=== PATIENT | female | born 1980 | race Two or more races ===

== ENCOUNTER 2025-08-23 19:10 | Emergency (ER) | payer MEDICAID, SELFPAY ==
--- NOTE | 2025-08-23 19:12 | EDNOTE_ITS ---
ED General RME/HPI General Chief complaint: Abdominal Pain Stated complaint: ABD PAIN Time Seen by Provider: 08/23/25 19:11 Arrival date/time: 08/23/25 19:10 CC: Left lower quadrant abdominal pain HPI onset this morning at 4 AM patient states she took ibuprofen at the time with significant relief. The patient s tates she took ibuprofen a half an hour prior to arrival by EMS and has had no relief. Patient denies nausea vomiting diarrhea. Patient states I think it is my hernia . Patient is awake alert oriented EMS reports stable vital signs. Related Data Home Medications ?Medication ?Instructions ?Recorded ?Confirmed aspirin 81 mg tablet,delayed 81 mg PO QDAY 03/25/21 release (Fernando Low Dose Aspirin) Held on 08/29/21. Instructions: Resume on 08/31/21. prenat.vits,moni,ick-ukiz-pzrmt 1 tab PO QDAY 03/25/21 05/03/21 Previous Rx's ?Medication ?Instructions ?Recorded docusate sodium 100 mg capsule 100 mg PO BID #40 caps 08/29/21 (DOK) hydrocodone 5 mg-acetaminophen 325 1 tab PO Q6H PRN pa in (scale score 08/29/21 mg tablet 7-10) #20 tabs ibuprofen 600 mg tablet 600 mg PO Q8H PRN pain (scal e 08/29/21 score 4-6) #15 tabs hydrocodone 5 mg-acetaminophen 325 1 tab PO Q8H PRN pa in #20 tabs 08/24/25 mg tablet promethazine 25 mg tablet 25 mg PO TID PRN nausea and 08/24/25 vomiting #14 tabs Allergies Allergy/AdvReac Type Severity Reaction Status Date / Time No Known Allergies Allergy Unverified 08/28/21 11:52 Review of Systems Review of Systems Narrative Review of Systems: GEN: No fever, no chills, no weight loss EYES: No discharge, no visual changes, no pain HEENT: No ear pain, no congestion, no sore throat PULM: No shortness of breath, no cough, no congestion CV: No chest pain, no dyspnea on exertion, no palpitations GI: No nausea, no vomiting, no diarrhea, + pain, no constipation : No frequency, no urgency, no dysuria MUSC/SKEL: No joint pain, no back pain SKIN: No rash PSYCH: No hallucinations, no depression HEME/LYMPH: No easy bleeding or bruising tendencies NEURO: No weakness, no headache Past Medical History Past Medical History NEUROLOGIC: Negative Neurological Disorders or Seizures CARDIAC: Negative Cardiac Disorders or Congestive Heart Failure RESPIRATORY: Negative Chronic Obstructive Pulmonary Disease (COPD) GASTROINTESTINAL: Negative Gastrointestinal Disorders GENITOURINARY: Positive Genitourinary Disorders (kidney stones); Negative Renal Disease REPRODUCTIVE: Positive Previous Pregnancies; Negative Pelvic Inflammatory Disease MUSCULOSKELETAL: Negative Musculoskeletal Disorders ENDOCRINE: Negative Endocrine Disorders, Diabetes Mellitus Type 1 or Diabetes Mellitus Type 2 HEMATOLOGIC: Negative Blood Disorders or Anemia PSYCHO/SOCIAL: Positive Anxiety OTHER HISTORY: Positive Hospitalization; Negative Autoimmune Disease, Falls, Blood Transfusions, Blood Transfusion Reaction, Anesthesia Reactions or Cancer Family History FAMILY HISTORY: Negative Family Psychiatric Problems, Family Respiratory Disorders, Family Cardiac Disorders, Family Gastrointestinal Problems, Family Cancer, Family Surgery or Family Anesthesia Reaction Surgical History SURGICAL: Negative Section Social History SMOKING STATUS: Never smoker SUBSTANCE USE: does not use ED Exam Narrative Physical exam: [General: In mild discomfort but not in any acute distress Head normocephalic HEENT: Eyes pupils are PERRLA EOMs are intact mouth pink dry membranes uvula is midline swallow symmetrical phonation is normal. Within acceptable limits Neck is supple nontender Chest equal chest rise nontender to palpation Respiratory: Clear to auscultation no wheezes crackles or rubs CV: Rate rhythm is regular no murmurs rubs or clicks Abdomen is distended secondary to body habitus soft, unable to reproduce the pain with deep palpation in the left lower quadrant as well as the pannus. No pain in the right upper quadrant or upper quadrants. Back: No CVA tenderness no spinous process tenderness from cervical spine thoracic and lumbar spine Skin: Intact no petechiae rash induration ulceration or crepitus Extremities: Moving all extremity against resistance cap refill less than 2 seconds neurosensory intact Neuro: Awake alert oriented x3 Glascow coma 15 no focal deficits] Course Quality Measures none Orders Category Date Time Status Saline [Insert IV] NOW Care 08/23/25 21:[address] abdomen pelvis wo con Stat Exams 08/23/25 19:14 Completed CBC Stat Lab 08/23/25 19:21 Completed CMP [Comprehensive Metabolic Panel] Stat Lab 08/23/25 19:21 Completed HCG,Qualitative Serum Stat Lab 08/23/25 19:21 Completed Lipase Stat Lab 08/23/25 19:21 Completed Urinalysis Stat Lab 08/23/25 20:55 Completed Ketorolac Inj [Toradol Inj] Med 08/23/25 21:24 Discontinued 15 mg IVP X1 ONE Sodium Chloride 0.9% 1000 ml [Ns] 1,000 ml Med 08/23/25 22:30 Discontinued IV 999 mls/hr Tamsulosin HCl [Flomax] Med 08/24/25 00:43 Discontinued 0.4 mg PO X1 ONE cefTRIAXone/D5w 1gm IV premix [Rocephin/D5w 1gm IV Med 08/23/25 21:24 Discontinued premix] 1 gm in 50 ml IV X1 Vital Signs Vital signs: Vital Signs Temperature 98.4 F 08/23/25 19:13 Pulse Rate 87 08/23/25 19:13 Respiratory Rate 16 08/23/25 19:13 Blood Pressure 147/94 H 08/23/25 19:13 Pulse Oximetry (%) 100 08/23/25 19:13 Oxygen Delivery Method Room Air 08/23/25 19:13 Discharge Plan Plan Patient Disposition: HOME (Self Care) Discharge Disposition comment: Stable Prescriptions/Referrals Prescriptions/Med Rec: New hydrocodone-acetaminophen 5-325 mg tablet 1 tab PO Q8H MDD 3 tab PRN (Reason: pain) Qty: 20 0RF promethazine 25 mg tablet 25 mg PO TID PRN (Reason: nausea and vomiting) Qty: 14 0RF No Action prenat.vits,moni,neb-oyni-jooio Tablet 1 tab PO QDAY aspirin [Fernando Low Dose Aspirin] 81 mg Tablet,Delayed Release (Dr/Ec) 81 mg PO QDAY docusate sodium [DOK] 100 mg Capsule 100 mg PO BID Qty: 40 0RF hydrocodone-acetaminophen 5-325 mg tablet 1 tab PO Q6H MDD 4 PRN (Reason: pain (scale score 7-10)) Qty: 20 0RF ibuprofen 600 mg tablet 600 mg PO Q8H PRN (Reason: pain (scale score 4-6)) Qty: 15 0RF Referrals: No Primary/Family,Physician [Primary Care Provider] - In 1 week Problem List Clinical Impression: Kidney stone, UTI (urinary tract infection) Patient/Caregiver Discharge Instructions Discharge Activity: activity as tolerated Diet Instructions: Force fluids Education Materials: Urinary Tract Infections in Women, ED Kidney Stone w/ Colic Additional Instructions: Follow-up/medication as directed/follow-up with primary care doctor for consideration of urological referral. Return for fever escalating abdominal pain or worsening illness. Print Language: Omani Stand Alone Forms: Loree Award Info., Patient Portal Info Letter MDM Clinical Information Provided by: patient and EMS [facility] Meds/Rx considered, not ordered None Labs/Rad/Tests considered, not ordered None Chronic Illness/Social Conditions which may negatively complicate care or outcome(s)-explain: None or not applicable EKG EKG not done Labs Labs: interpreted by me Imaging Imaging interpretation: interpreted by me Medication Administration(s) Medication Administration History Discontinued Medications Ceftriaxone Sodium/Dextrose (Rocephin/D5w 1gm Iv Premix) 1 gm in 50 mls @ 100 mls/hr IV X1 ONE Stop: 08/23/25 21:53 Last Infusion: 08/23/25 22:33 Dose: Infused Documented By: Admin: 08/23/25 21:51 Dose: 100 mls/hr Documented By: CHIARA Sodium Chloride (Ns) 1,000 mls @ 999 mls/hr IV .Q1H1M ONE Stop: 08/23/25 23:30 Last Infusion: 08/23/25 23:53 Dose: Infused Documented By: Admin: 08/23/25 22:36 Dose: 999 mls/hr Documented By: CHIARA Ketorolac Tromethamine (Ketorolac Inj 30 Mg/Ml Vial) 15 mg IVP X1 ONE Stop: 08/23/25 21:25 Last Admin: 08/23/25 21:49 Dose: 15 mg Documented By: CHIARA Tamsulosin HCl (Tamsulosin Hcl 0.4 Mg Capsule) 0.4 mg PO X1 ONE Stop: 08/24/25 00:44 Last Admin: 08/24/25 00:52 Dose: 0.4 mg Documented By: CHIARA
[2025-08-23 19:13] VITALS: BP 147/94; PULSE 87; PULSE 98; RESP 16; RESP 18; TEMP 36.9; O2SAT 100; O2SAT 99; BMI 33.5
--- NOTE | 2025-08-23 19:14 | XR_ITS ---
Examination: CT abdomen and pelvis without contrast. Coronal 3-D reconstructions. Sagittal 2-D reconstructions. Date and time of exam: August 23, 2025, 2105 hours COMPARISON: August 27, 2021 INDICATIONS: Onset left lower abdominal pain today CTDI: vol (mGy): 9.53 DLP: (mGycm): 547 Technique: Axial images of the abdomen have been obtained, 3 mm slice thickness Intravenous contrast material has not been administered. Low dose protocols were performed. One or more of the following dose reduction techniques were used; automated exposure control, adjustment of the mA and/or KV according to patient size, use of iterative reconstruction technique. Findings: No focal liver or splenic lesions No gallstones No pancreatic or adrenal mass Numerous bilateral renal calculi, the largest 6 mm in the lower pole right kidney Mild left hydronephrosis 9 mm proximal left ureteral calculus Aorta normal size no pericecal inflammatory change 19 mm fat-containing umbilical hernia No pelvic mass Contracted urinary bladder Moderate osteopenia Impression: Numerous bilateral renal calculi Mild left hydronephrosis, 9 mm proximal left ureteral calculus
[2025-08-23 19:52] LABS: Basophils # (Auto) 0.0 Thou/mm3 (0.0-0.2); Basophils % (Auto) 0 % (0-2.5); Eosinophils # (Auto) 0.1 Thou/mm3 (0.0-0.5); Eosinophils % (Auto) 1 % (0-10); Hematocrit 38.0 % (36.0-46.0); Hemoglobin 12.7 g/dL (12.0-16.0); Immature Granulocytes Auto 0.01 Thou/mm3 (0.00-0.00); Lymphocytes # (Auto) 1.4 Thou/mm3 (1.0-4.8); Lymphocytes % (Auto) 22 % (10-50); Mean Corpuscular HGB Conc 33.4 g/dl (31.0-37.0); Mean Corpuscular Hemoglobin 27.9 pg (25.0-35.0); Mean Corpuscular Volume 83 fL (80-100); Monocytes # (Auto) 0.6 Thou/mm3 (0.0-0.8); Monocytes % (Auto) 10 % (0-12); Neutrophils # (Auto) 4.4 Thou/mm3 (1.8-7.7); Neutrophils % (Auto) 67 % (37-80); Nucleated Red Blood Cell # 0.00 Thou/mm3 (0.00-0.00); Nucleated Red Blood Cell % 0 /100 WBC (0); Platelet Count 271 Thou/mm3 (140-440); RDW Standard Deviation 38.6 fL (36.4-46.3); Red Blood Count 4.56 Miln/mm3 (4.00-5.20); White Blood Count 6.5 Thou/mm3 (3.6-11.0)
[2025-08-23 20:13] LABS: Alanine Aminotransferase 19 U/L (10-49); Albumin, Serum 4.7 gm/dL (3.5-5.0); Albumin/Globulin Ratio 1.8 (1.2-2.2); Alkaline Phosphatase 142 U/L (46-116); Anion Gap 11 (7-16); Aspartate Amino Transferase 23 U/L (0-34); BUN/Creatinine Ratio 16 Ratio (12-20); Bilirubin,Total 0.5 mg/dL (0.3-1.2); Blood Urea Nitrogen 11 mg/dL (9-23); Calcium 9.7 mg/dL (8.3-10.6); Calcium (Corrected) 9.7 mg/dL (8.5-10.1); Carbon Dioxide 26.7 mMol/L (20.0-31.0); Chloride 105 mMol/L (98-107); Creatinine (Component) 0.7 mg/dL (0.6-1.3); Estimated Creatinine Clearance 13.2 mL/min (>60); Globulin 2.6 gm/dL (2.3-3.5); Glucose 121 mg/dL (74-106); Lipase 37 U/L (12-53); Osmolality,Calculated 285 (275-295); Potassium 3.2 mMol/L (3.4-5.1); Sodium 143 mMol/L (136-145); Total Protein 7.3 gm/dL (5.7-8.2); eGFR > 60 See Note
[2025-08-23 20:59] LABS: Collection Type, Urine Clean Catch
[2025-08-23 21:01] LABS: HCG,Qualitative Serum Negative
[2025-08-23 21:06] LABS: Bacteria,Urine 2+; Bilirubin,Urine Negative (Negative); Blood,Urine 3+ (Negative); Budding Yeast,Urine Present; Clarity,Urine Turbid (Clear/Hazy); Color,Urine Yellow (Lt Yel-Yel); Glucose, Urine Negative (Negative); Hyaline Casts,Urine < 1 /hpf (0-1); Ketones,Urine 2+ (Negative); Leukocyte Esterase,Urine Positive (Negative); Nitrite,Urine Negative (Negative); PH,Urine 5.5 (5.0-7.0); Protein,Urine 1+ (Neg - Trace); RBC,Urine 400 /hpf (0-3); Specific Gravity,Urine 1.023 (1.001-1.035); Squamous Epithelial Cell,Urine 48 /hpf (0-5); Urobilinogen,Urine 2.0 mg/dL (0.0-1.0); WBC,Urine 63 /hpf (0-5)
[2025-08-23 21:46] VITALS: BP 148/91; PULSE 90; RESP 18; TEMP 36.7; O2SAT 98
[2025-08-23] MEDS: KETOROLAC INJ 30 MG/ML VIAL 15 MG IVP (21:49)
[2025-08-23] MEDS: cefTRIAXone/D5w 1gm IV premix 1 GM/50 ML BAG IV (21:51)
--- NOTE | 2025-08-23 22:30 | PD.EDADDENDU ---
Emergency Room Addendum Addendum Narrative: 22:30 - Care assumed from Thomas Motta NP, (emergency mid-level provider). Past medical, surgical, social and family history reviewed. Vitals and home medications reviewed. Results and treatment plan discussed. I will assume the care of the patient at this time and will follow the patient, pending transport for urological intervention. 22:35 - Assumed care of this pleasant 44 y/o female presenting sudden onset LLQ abdominal pain in the absence of fever, vomiting, or diarrhea. Patient does report malorodorous urine and no hematuria. Clinical exam demonstrates mild TTP of LLQa. Patient hydrated with saline and treated with imperic ABX and was referred for CT. CT scan demonstrated 9 mm left proximal ureterostone with mild hydronephrosis, and BL renal calculi present. Contacted [facility] and discussed at length with Urologist. Given absence of fever or signs of systemic toxicity, there is no need for transfer. Patiient will be discharged on Flomax, ABX, analgesic, and anti-emetic with recommended close f/u with PMD for urological referral. Prior review of records indicated previous similar-sized stone which spontaneously passed. Final diagnoses include obstructive uropathy, left urterolithiasis, nephrolithiasis, and UTI. 00:43 - I have spoken with the patient and discussed today?s findings, in addition to providing specific details for the plan of care. Questions are answered and there is an agreement with the plan. Re-assessment at the time of disposition demonstrates that the patient is in no acute distress. The patient has remained stable throughout the entire ED visit and is without objective evidence for acute process requiring urgent intervention or hospitalization. The patient is stable for discharge; counseling is provided and documented as above, discussed symptomatic treatment and specific conditions for return.
[2025-08-23] MEDS: SODIUM CHLORIDE 0.9% 1000 ML 1,000 ML 999 ML IV (22:36)
[2025-08-23 23:28] VITALS: BP 126/79; PULSE 95; RESP 19; TEMP 36.6; O2SAT 98
--- NOTE | 2025-08-23 23:28 | PC.NURSE ---
2308 CONTACTED KATHIE [facility] SENT PT PKT. PER TRANSFER NURSE KATHIE IS NEAR [facility]. 230 CONTACTED [facility] SENT PT PKT AND PUSHED IMAGES.
[2025-08-24 00:49] VITALS: BP 118/74; PULSE 86; RESP 16; TEMP 36.7; O2SAT 99
[2025-08-24] MEDS: TAMSULOSIN HCL 0.4 MG CAPSULE PO (00:52)
== END 2025-08-24 01:08 | disposition home or self-care (01) ==
PROVIDERS: Registered Nurse General Practice; Emergency Provider Emergency Medicine
DX: N13.6 Pyonephrosis (principal)
CPT/HCPCS: 36415; 74176; 80053; 81001; 81025; 83690; 84703; 85025; 96361; 96365; 96375; 99284; J0696; J1885; J7030; A9270